=== PATIENT | female | born 1960 | race African-American/Black ===

== ENCOUNTER 2022-01-31 16:18 | Emergency (ER) | payer OTHER ==
[~2022-01-31] VITALS: Ht 167.6 cm; Wt 100.0 kg
[2022-01-31 16:25] VITALS: BP 136/84
[2022-01-31 17:42] LABS: CHLORIDE 114 mEq/L (98-107)
[2022-01-31 17:45] LABS: EOSINOPHILS % 1.5 % (0.0-5.0); HEMATOCRIT. 30.9 % (36.0-48.0); HEMOGLOBIN. 10.6 g/dL (12.0-16.0); LYMPHOCYTES % 26.8 % (20.0-50.0); MEAN CORPUSCULAR HEMOGLOBIN 27.6 pg (28.0-32.0); MEAN CORPUSCULAR VOLUME 80.5 fL (81.0-99.0); MEAN PLATELET VOLUME 8.8 fl (7.4-10.4); MONOCYTES % 6.4 % (2.0-8.0); NEUTROPHILS % 64.3 % (40.0-76.0); PLATELET 361 x1000/uL (130-400); RED BLOOD CELL COUNT 3.84 mill/uL (4.2-5.4); RED CELL DISTRIBUTION WIDTH 13.9 % (11.6-14.6)
== END 2022-01-31 18:53 | disposition left against medical advice (07) ==
LOC: ER 16:18
DX: R42 Dizziness and giddiness (principal)
CPT/HCPCS: 36415; 80053; 83880; 85025; 93005; 99284